=== PATIENT | male | born 1970 | race Caucasian/White ===

== ENCOUNTER → 2019-07-24 | Outpatient (CLI) | payer OTHER ==
--- NOTE | 2019-07-24 15:32 | KCIC ---
STUDY: MRI of the left knee without contrast INDICATION: Chronic knee pain with intermittent swelling. Attempted steroid injections with limited benefit. COMPARISON: None. TECHNIQUE: Multiplanar MR imaging of the left knee performed without the use of intravenous or intra-articular contrast. FINDINGS: Menisci: Intact medial and lateral menisci. Cruciate ligaments: Intact ACL and PCL. Collateral ligaments: No acute injury. Tendons: No acute injury. Cartilage: Patellofemoral: Multifocal patellar chondrosis with a near full-thickness/full-thickness fissure at the medial facet approaching the ridge, image 8 series 4. More pronounced chondrosis seen to involve the trochlea particularly at the trochlear groove and along the adjacent aspect of the medial trochlea. Lateral compartment: No full-thickness chondral defect identified. Medial compartment: Heterogeneity at the posterior nonweightbearing medial femoral condyle, image 10 series 4, appearing secondary to pulsation artifact. No full-thickness defect seen at the weightbearing surface of the joint however there is partial thickness chondral loss along the inner margin of the weightbearing medial femoral condyle as seen on image 12 series 8. Bones: No acute fracture. Marrow signal is within normal limits. The TT-TG distance measures 1.7 cm. Miscellaneous: Trace knee joint effusion. Tiny Hanson's cyst. Mild edema of the quadriceps fat pad which exhibits a convex posterior margin IMPRESSION: 1. No acute internal derangement. The menisci and cruciate ligaments are intact. 2. 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 Partial thickness chondrosis seen along the inner margin of the weightbearing medial femoral condyle. 3. Trace knee joint effusion and a tiny Hanson's cyst. 4. Mild edema of the quadriceps fat pad which exhibits a convex posterior margin. Though nonspecific, this appearance has been reported with quadriceps fat pad impingement syndrome. Electronically signed by: SYEDA LANIER MD (07/24/2019 3:30 PM) [id number]
== END | disposition home or self-care (01) ==
LOC: KCIC MRI 13:54
PROVIDERS: ATTEND Physician Assistant
DX: M25.462 Effusion, left knee (principal); M71.22 Synovial cyst of popliteal space [Baker], left knee; R60.0 Localized edema; G89.29 Other chronic pain
CPT/HCPCS: 73721